=== PATIENT | female | born 2000 | race Caucasian/White ===

== ENCOUNTER 2024-02-14 23:48 | Emergency (ER) | payer SELFPAY ==
[~2024-02-14] VITALS: Ht 175.3 cm; Wt 55.9 kg
[2024-02-15 00:17] VITALS: O2SAT 100
[2024-02-15] MEDS ORDERED: TRIMO EACHEYE (01:50)
[2024-02-15 02:10] VITALS: BP 108/61; PULSE 82; RESP 18; TEMP 36.94740; O2SAT 100
[2024-02-15] MEDS: FLUORESCEIN SODIUM 1MG/STRIP BOTHEYE ONE (02:11)
[2024-02-15] MEDS: TETRACAINE 0.5% OPHTH DROPS 4ML BOTHEYE ONE (02:12)
== END 2024-02-15 02:12 | disposition home or self-care (01) ==
LOC: ER 23:48
DX: H10.9 Unspecified conjunctivitis (principal); Z01.00 Encounter for examination of eyes and vision without abnormal findings
CPT/HCPCS: 99283